=== PATIENT | male | born 1995 | race Hispanic/Latino ===

== ENCOUNTER → 2016-10-14 | Outpatient (REF) ==
--- NOTE | 2016-10-15 01:57 | REP ---
Clinical: Postmortem. Are top seen. Technique: Portable AP and lateral views of the skull. Findings: Comminuted fractures of the calvarium and facial bones along with pneumocephalus, soft tissue injuries and foreign body material appreciated. Impression: Innumerable calvarial and facial fractures with pneumocephalus, soft tissue injury and foreign body material. Signed by Celestino Lopez MD 10/15/2016 01:48 A
== END ==
LOC: M LAB 09:43